=== PATIENT | male | born 1955 | race Caucasian/White ===

== ENCOUNTER 2022-07-25 08:10 | Inpatient (IN) ==
[2022-07-25] MEDS ORDERED: cefTRIAXone 1,000 MG in 0.9 % Sodium Chloride Mini Bag 100 ML IVPB ONE (08:34)
[2022-07-25] MEDS ORDERED: Azithromycin 500 MG in D5% in Water 250 ML IVPB ONE (08:34)
[2022-07-25] MEDS ORDERED: Ibuprofen 600 MG TABLET PO ONE (08:58)
[2022-07-25 09:05] LABS: Hematocrit 41.8 % (37.5-50.1); Immature Granulocytes % 0.3 % (0-4); Lymphocytes % 16.7 %; Mean Corpuscular HGB Conc 33.5 g/dL (31.6-35.5); Mean Corpuscular Hemoglobin 29.1 pg (28.0-33.3); Mean Corpuscular Volume 86.9 fL (83.0-100.0); Mean Platelet Volume 9.8 fL (9.4-12.4); Monocytes # 0.7 K/mcL (0.0-1.3); Monocytes % 10.7 %; Neutrophils # 4.5 K/mcL (1.6-8.9); Platelet Count 103 K/mcL (140-400); Red Blood Count 4.81 M/mcL (4.19-5.50); Red Cell Distribution Width 14.3 % (11.5-14.5); Segmented Neutrophils % 72.3 %; White Blood Count 6.2 K/mcL (4.3-11.1)
[2022-07-25 09:11] LABS: INR 1.2; Prothrombin Time 13.4 Seconds (9.4-12.1)
[2022-07-25 09:18] LABS: Bilirubin,Urine Negative (Negative); Blood,Urine Trace-intact (Negative); Clarity,Urine Clear (Clear); Color,Urine Yellow (Yellow); Glucose,Urine (UA) Normal (Normal); Ketones,Urine 40 mg/dL (Negative); Leukocyte Esterase,Urine Negative (Negative); Nitrite,Urine Negative (Negative); PH,Urine 5.5 pH Units (5.0-8.0); Protein,Urine 100 mg/dL (Neg-Trace); Specific Gravity,Urine >= 1.030 (1.010-1.025); Urobilinogen,Urine Normal (Normal)
[2022-07-25 09:25] LABS: Albumin 4.4 g/dL (3.5-5.7); Albumin/Globulin Ratio 1.4 (1.1-2.2); Bilirubin,Total 0.8 mg/dL (0.3-1.0); Calcium 8.9 mg/dL (8.6-10.3); Globulin 3.1 g/dL (2.4-3.5); Potassium 3.9 mEq/L (3.5-5.1); Total Protein 7.5 g/dL (6.4-8.9)
[2022-07-25 09:25] LABS: RBC,Urine 0-3 per hpf (0-3); Squamous Epithelial Cell,Urine Moderate per hpf (None-Few); WBC,Urine 0-3 per hpf (0-3)
[2022-07-25 09:26] LABS: Bacteria,Urine Few per hpf (None-Few)
[2022-07-25] MEDS ORDERED: 0.9 % Sodium Chloride 500 ML IVC ONE (09:42)
[2022-07-25] MEDS ORDERED: Iopamidol - 370 500 ML MLS IVP ONE (11:03)
[2022-07-25] MEDS ORDERED: Famotidine 20 MG/2 ML VIAL IVP ONE (11:07)
[2022-07-25] MEDS ORDERED: methylPREDNISolone 125 MG/2 ML VIAL IVP ONE (11:08)
[2022-07-25] MEDS ORDERED: Ipratropium/Albuterol Neb 3 ML IH PRN (15:35)
[2022-07-25] MEDS ORDERED: Albuterol 2.5 MG/3 ML NEBULIZER IH PRN (15:35)
[2022-07-25] MEDS ORDERED: Acetaminophen 325 MG TABLET PO PRN (15:39)
[2022-07-25] MEDS ORDERED: MOM Conc 10 ML UD.LIQ PO PRN (15:39)
[2022-07-25] MEDS ORDERED: Ondansetron 4 MG/2 ML VIAL IVP PRN (15:39)
[2022-07-25] MEDS ORDERED: Naloxone 0.4 MG/ML INJ IVP PRN (15:39)
[2022-07-25] MEDS ORDERED: Mag Hydrox/Al Hydrox/Simeth 30 ML UDC PO PRN (15:39)
[2022-07-25] MEDS ORDERED: Ibuprofen 400 MG TABLET PO PRN (15:39)
[2022-07-25] MEDS ORDERED: Ondansetron ODT 4 MG TAB.RAPDIS SL PRN (15:39)
[2022-07-25] MEDS ORDERED: *HR* Dextrose 50 % in Water (Syg) 50 ML SYRINGE IVP PRN (15:48)
[2022-07-25] MEDS ORDERED: D5% in Water 1,000 ML IVC PRN (15:48)
[2022-07-25] MEDS ORDERED: Dextrose Gel 15 GM/37.5 ML TUBE PO PRN ×2 (15:48)
[2022-07-25] MEDS ORDERED: levoFLOXacin 500 MG/100 ML 500 MG/100 ML BAG IVPB SCH (17:00)
[2022-07-25] MEDS: Insulin LISPRO 300 UNITS/3 ML VIAL SUBQ SCH ×2 (20:43→21:06)
[2022-07-25] MEDS: Melatonin 3 MG TABLET PO PRN (21:06)
[2022-07-26 05:01] LABS: Hematocrit 41.2 % (37.5-50.1); Hemoglobin 13.8 g/dL (12.9-16.9); Immature Granulocytes % 0.2 % (0-4); Lymphocytes # 1.2 K/mcL (0.6-4.6); Lymphocytes % 23.8 %; Mean Corpuscular HGB Conc 33.5 g/dL (31.6-35.5); Mean Corpuscular Volume 86.6 fL (83.0-100.0); Mean Platelet Volume 9.9 fL (9.4-12.4); Monocytes # 0.4 K/mcL (0.0-1.3); Neutrophils # 3.4 K/mcL (1.6-8.9); Platelet Count 102 K/mcL (140-400); Red Blood Count 4.76 M/mcL (4.19-5.50); Red Cell Distribution Width 13.7 % (11.5-14.5)
[2022-07-26 05:14] LABS: Albumin 4.1 g/dL (3.5-5.7); Albumin/Globulin Ratio 1.5 (1.1-2.2); Bilirubin,Total 0.6 mg/dL (0.3-1.0); Calcium 8.5 mg/dL (8.6-10.3); Globulin 2.8 g/dL (2.4-3.5); Magnesium 2.1 mg/dL (1.6-2.6); Phosphorous 2.6 mg/dL (2.7-4.5); Potassium 4.4 mEq/L (3.5-5.1); Total Protein 6.9 g/dL (6.4-8.9)
[2022-07-26] MEDS: *HR* Enoxaparin 40 MG/0.4 ML SYRINGE SQ SCH (05:40)
[2022-07-26 06:58] LABS: Thyroid Stimulating Hormone 0.217 mcIU/mL (0.340-5.600)
[2022-07-26] MEDS: Insulin LISPRO 300 UNITS/3 ML VIAL SUBQ SCH ×4 (07:40→20:03)
[2022-07-26] MEDS: Metoprolol XL (24 HR) Succ 50 MG TAB.ER.24H PO SCH (08:09)
[2022-07-26] MEDS: Aspirin Enteric Coated 81 MG Tablet PO SCH (08:09)
[2022-07-26] MEDS: GlipiZIDE 5 MG TABLET PO SCH (08:09)
[2022-07-26 08:43] LABS: Estimated Average Glucose 169 mg/dl; Hemoglobin A1C 7.5 %
[2022-07-26 15:16] VITALS: TEMP 97.6
[2022-07-26] MEDS ORDERED: haloperidoL 1 MG TABLET PO PRN (15:34)
[2022-07-26] MEDS: allopurinoL 300 MG TABLET PO SCH (19:15)
[2022-07-26] MEDS: Melatonin 3 MG TABLET PO PRN (20:10)
[2022-07-27] MEDS: *HR* Enoxaparin 40 MG/0.4 ML SYRINGE SQ SCH (05:11)
[2022-07-27 05:36] LABS: Basophils % 0.2 %; Hematocrit 40.3 % (37.5-50.1); Hemoglobin 13.4 g/dL (12.9-16.9); Immature Granulocytes % 0.5 % (0-4); Lymphocytes # 1.9 K/mcL (0.6-4.6); Lymphocytes % 33.6 %; Mean Corpuscular HGB Conc 33.3 g/dL (31.6-35.5); Mean Corpuscular Hemoglobin 28.8 pg (28.0-33.3); Mean Corpuscular Volume 86.7 fL (83.0-100.0); Monocytes # 0.5 K/mcL (0.0-1.3); Neutrophils # 3.2 K/mcL (1.6-8.9); Platelet Count 101 K/mcL (140-400); Red Blood Count 4.65 M/mcL (4.19-5.50); Segmented Neutrophils % 57.7 %; White Blood Count 5.6 K/mcL (4.3-11.1)
[2022-07-27 05:52] LABS: Albumin 3.9 g/dL (3.5-5.7); Albumin/Globulin Ratio 1.4 (1.1-2.2); Bilirubin,Total 0.6 mg/dL (0.3-1.0); Calcium 8.5 mg/dL (8.6-10.3); Globulin 2.7 g/dL (2.4-3.5); Potassium 3.9 mEq/L (3.5-5.1); Total Protein 6.6 g/dL (6.4-8.9)
[2022-07-27 07:17] VITALS: BP 149/84; PULSE 63; RESP 16; O2SAT 97
[2022-07-27] MEDS: Insulin LISPRO 300 UNITS/3 ML VIAL SUBQ SCH ×2 (08:20→14:45)
[2022-07-27] MEDS: allopurinoL 300 MG TABLET PO SCH (08:23)
[2022-07-27] MEDS: GlipiZIDE 5 MG TABLET PO SCH (08:23)
[2022-07-27] MEDS: Metoprolol XL (24 HR) Succ 50 MG TAB.ER.24H PO SCH (08:24)
[2022-07-27] MEDS: Aspirin Enteric Coated 81 MG Tablet PO SCH (08:24)
[2022-07-27 14:47] LABS: Triiodothyronine (T3) Free 2.5 pg/mL (2.50-3.90)
== END 2022-07-27 15:05 | disposition home or self-care (01) | DRG 179 ==
LOC: INPGRE 08:10 → EMEROOGRE 08:10 → INPGRE 17:40
PROVIDERS: ADMIT Family Medicine; ATTEND Family Medicine